=== PATIENT | female | born 1995 | race Caucasian/White ===

== ENCOUNTER 2017-05-07 08:50 | Emergency (ER) | payer BC ==
[2017-05-07 09:01] LABS: Glucose,Whole Blood 89 mg/dL (75-99)
[2017-05-07] MEDS ORDERED: SODIUM CHLORIDE 0.9% 1,000 ML IV STA (09:11)
--- NOTE | 2017-05-07 09:18 | ED ---
General Adult HPI - General Chief complaint: Syncope Stated complaint: Passed out and hit head Time Seen by Provider: 05/07/17 08:59 Source: patient, RN notes reviewed Mode of arrival: ambulatory Limitations: no limitations - History of Present Illness Initial comments: 21-year-old male presents emergency department with a chief complaint of syncopal episode. Patient states SHE IS NOT FEELING WELL SHE STOOD UP AND SHE GOT LIGHTHEADED AND PASSED OUT. PATIENT STATES IS HER HEAD. SHE STATES SHE HAS MILD HEADACHE DENIES ANY NECK PAIN AND DENIES ANY NAUSEA VOMITING. PATIENT STATES SHE IS FEELING BETTER AT THIS TIME. PATIENT STATES SHE DRANK A LOT OF WATER YESTERDAY BUT SHE DID NOT EAT VERY MUCH. PATIENT STATES THAT SHE HASN'T HAD ANY CHANGES IN LUMBAR BLADDER HABITS. PATIENT DENIES ANY FEVER OR CHILLS. THEY DENY ANY SIGNIFICANT HEALTH HISTORY AND CHILD. SHE DENIES ANY DRUG OR ALCOHOL USE. THERE WERE CONCERNED DUE TO THE SYNCOPAL EPISODES WITHOUT THAT THEY SHOULD BE EVALUATED.Patient denies any recent fever, chills, shortness of breath, chest pain, back pain, abdominal pain, nausea vomiting, numbness or tingling, dysuria or hematuria, constipation or diarrhea, visual changes, or any other current symptoms. - Related Data Home Medications Medication Instructions Recorded Confirmed No Known Home Medications [No 05/07/17 05/07/17 Known Home Medications] Allergies Allergy/AdvReac Type Severity Reaction Status Date / Time No Known Allergies Allergy Verified 05/07/17 09:36 Review of Systems ROS Statement: Those systems with pertinent positive or pertinent negative responses have been documented in the HPI. ROS Other: All systems not noted in ROS Statement are negative. Past Medical History Past Medical History: No Reported History History of Any Multi-Drug Resistant Organisms: None Reported Past Surgical History: No Surgical Hx Reported Past Psychological History: No Psychological Hx Reported Smoking Status: Never smoker Past Alcohol Use History: Occasional Past Drug Use History: None Reported General Exam - General Exam Comments Initial Comments: General: The patient is awake and alert, in no distress, and does not appear acutely ill. Eye: Pupils are equal, round and reactive to light, extra-ocular movements are intact; there is normal conjunctiva bilaterally. No signs of icterus. Ears, nose, mouth and throat: There are moist mucous membranes and no oral lesions. Neck: The neck is supple, there is no tenderness. Cardiovascular: There is a regular rate and rhythm. No murmur, rub or gallop is appreciated. Respiratory: Lungs are clear to auscultation, respirations are non-labored, breath sounds are equal. No wheezes, stridor, rales, or rhonchi. Gastrointestinal: Soft, non-distended, non-tender abdomen without masses or organomegaly noted. There is no rebound or guarding present. No CVA tenderness. Bowel sounds are unremarkable. Back: There is no tenderness to palpation in the midline. There is no obvious deformity. No rashes noted. Musculoskeletal: Normal ROM, no tenderness, There is no pedal edema. There is no calf tenderness or swelling. Sensation intact. Pulses equal bilaterally 2+. Neurological: CN II-XII intact, There are no obvious motor or sensory deficits. Coordination appears grossly intact. Speech is normal. Skin: Skin is warm and dry and no rashes or lesions are noted. Psychiatric: Cooperative, appropriate mood & affect, normal judgment. Limitations: no limitations Course Vital Signs 05/07/17 08:50 Temperature 97.6 F Pulse Rate 77 Respiratory 18 Rate Blood Pressure 148/94 O2 Sat by Pulse 100 Oximetry Medical Decision Making - Medical Decision Making 21-year-old female presents emergency Department with a chief complaint of syncopal episode. At this time patient's laboratory is reviewed. Does appear to be some dehydration. With further questioning it does appear that patient was at a green party on Saturday night and does not eat much yesterday she states she did have somewhat to drink. This and we discussed her symptoms could be from the dehydration. We also dressed the amphetamine in the urine drug screen and she states that she was at a green party she is not sleeping last night but she hasn' t used these in the past. At this time we did discuss. With her doctor. We did discuss return parameters all the questions. She stated that she understood and she is given the plan. She will be discharged home. - Lab Data Result diagrams: 05/07/17 09:24 05/07/17 09:24 Lab Results 05/07/17 05/07/17 05/07/17 Range/Units 09:00 09:19 09:19 WBC (4.0-11.0) k/uL RBC (3.80-5.40) m/uL Hgb (11.4-16.0) gm/dL Hct (34.0-46.0) % MCV (80.0-100.0) fL MCH (25.0-35.0) pg MCHC (31.0-37.0) g/dL RDW (11.5-15.5) % Plt Count (150-450) k/uL Neutrophils % % Lymphocytes % % Monocytes % % Eosinophils % % Basophils % % Neutrophils # (1.3-7.7) k/uL Lymphocytes # (1.0-4.8) k/uL Monocytes # (0-1.0) k/uL Eosinophils # (0-0.7) k/uL Basophils # (0-0.2) k/uL Sodium (137-145) mmol/L Potassium (3.5-5.1) mmol/L Chloride (98-107) mmol/L Carbon Dioxide (22-30) mmol/L Anion Gap mmol/L BUN (7-17) mg/dL Creatinine (0.52-1.04) mg/dL Est GFR (MDRD) Af Amer (>60 ml/min/1.73 sqM) Est GFR (MDRD) Non-Af (>60 ml/min/1.73 sqM) Glucose (74-99) mg/dL POC Glucose (mg/dL) 89 (75-99) mg/dL POC Glu Hydrographer ID Grace Hubbard Calcium (8.4-10.2) mg/dL Total Bilirubin (0.2-1.3) mg/dL AST (14-36) U/L ALT (9-52) U/L Alkaline Phosphatase (38-126) U/L Total Protein (6.3-8.2) g/dL Albumin (3.5-5.0) g/dL Amylase (30-110) U/L Lipase (23-300) U/L Urine Color Yellow Urine Appearance Clear (Clear) Urine pH 6.0 (5.0-8.0) Ur Specific [place] 1.015 (1.001-1.035) Urine Protein Negative (Negative) Urine Glucose (UA) Negative (Negative) Urine Ketones Negative (Negative) Urine Blood Negative (Negative) Urine Nitrite Negative (Negative) Urine Bilirubin Negative (Negative) Urine Urobilinogen <2.0 (<2.0) mg/dL Ur Leukocyte Esterase Negative (Negative) Urine HCG, Qual Not Detected (Not Detectd) Urine Opiates Screen Not Detected (NotDetected) Ur Oxycodone Screen Not Detected (NotDetected) Urine Methadone Screen Not Detected (NotDetected) Ur Propoxyphene Screen Not Detected (NotDetected) Ur Barbiturates Screen Not Detected (NotDetected) U Tricyclic Antidepress Not Detected (NotDetected) Ur Phencyclidine Scrn Not Detected (NotDetected) Ur Amphetamines Screen Detected H (NotDetected) U Methamphetamines Scrn Not Detected (NotDetected) U Benzodiazepines Scrn Not Detected (NotDetected) Urine Cocaine Screen Not Detected (NotDetected) U Marijuana (THC) Screen Not Detected (NotDetected) 05/07/17 05/07/17 Range/Units 09:24 09:24 WBC 7.1 (4.0-11.0) k/uL RBC 5.10 (3.80-5.40) m/uL Hgb 16.2 H (11.4-16.0) gm/dL Hct 47.0 H (34.0-46.0) % MCV 92.3 (80.0-100.0) fL MCH 31.7 (25.0-35.0) pg MCHC 34.4 (31.0-37.0) g/dL RDW 13.2 (11.5-15.5) % Plt Count 356 (150-450) k/uL Neutrophils % 46 % Lymphocytes % 44 % Monocytes % 5 % Eosinophils % 2 % Basophils % 1 % Neutrophils # 3.2 (1.3-7.7) k/uL Lymphocytes # 3.1 (1.0-4.8) k/uL Monocytes # 0.4 (0-1.0) k/uL Eosinophils # 0.1 (0-0.7) k/uL Basophils # 0.1 (0-0.2) k/uL Sodium 141 (137-145) mmol/L Potassium 3.7 (3.5-5.1) mmol/L Chloride 104 (98-107) mmol/L Carbon Dioxide 27 (22-30) mmol/L Anion Gap 10 mmol/L BUN 13 (7-17) mg/dL Creatinine 0.84 (0.52-1.04) mg/dL Est GFR (MDRD) Af Amer >60 (>60 ml/min/1.73 sqM) Est GFR (MDRD) Non-Af >60 (>60 ml/min/1.73 sqM) Glucose 87 (74-99) mg/dL POC Glucose (mg/dL) (75-99) mg/dL POC Glu Hydrographer ID Calcium 9.6 (8.4-10.2) mg/dL Total Bilirubin 0.9 (0.2-1.3) mg/dL AST 17 (14-36) U/L ALT 22 (9-52) U/L Alkaline Phosphatase 83 (38-126) U/L Total Protein 7.5 (6.3-8.2) g/dL Albumin 4.2 (3.5-5.0) g/dL Amylase 53 (30-110) U/L Lipase 124 (23-300) U/L Urine Color Urine Appearance (Clear) Urine pH (5.0-8.0) Ur Specific [place] (1.001-1.035) Urine Protein (Negative) Urine Glucose (UA) (Negative) Urine Ketones (Negative) Urine Blood (Negative) Urine Nitrite (Negative) Urine Bilirubin (Negative) Urine Urobilinogen (<2.0) mg/dL Ur Leukocyte Esterase (Negative) Urine HCG, Qual (Not Detectd) Urine Opiates Screen (NotDetected) Ur Oxycodone Screen (NotDetected) Urine Methadone Screen (NotDetected) Ur Propoxyphene Screen (NotDetected) Ur Barbiturates Screen (NotDetected) U Tricyclic Antidepress (NotDetected) Ur Phencyclidine Scrn (NotDetected) Ur Amphetamines Screen (NotDetected) U Methamphetamines Scrn (NotDetected) U Benzodiazepines Scrn (NotDetected) Urine Cocaine Screen (NotDetected) U Marijuana (THC) Screen (NotDetected) - Radiology Data Radiology results: report reviewed, image reviewed Disposition Clinical Impression: Dehydration, Episode of syncope Disposition: HOME SELF-CARE Condition: Stable Instructions: Syncope (ED), Dehydration (ED) Additional Instructions: Please use medication as discussed. Please follow up with family doctor if symptoms have not improved over the next two days. Please return to the emergency room if your symptoms increase or worsen or for any other concerns. Referrals: Katt Mayen MD [STAFF PHYSICIAN] - 1-2 days Time of Disposition: 10:13
[2017-05-07 09:33] LABS: Basophils # (A) 0.1 k/uL (0-0.2); Basophils % (A) 1 %; CH 31.5; CHCM 34.3; Eosinophils # (A) 0.1 k/uL (0-0.7); Eosinophils % (A) 2 %; HDW 2.71; HGB 16.2 gm/dL (11.4-16.0); Luc # (Auto) 0.23; Luc % (Auto) 3; Lymphocytes # (A) 3.1 k/uL (1.0-4.8); Lymphocytes % (A) 44 %; MCH 31.7 pg (25.0-35.0); MCHC 34.4 g/dL (31.0-37.0); MCV 92.3 fL (80.0-100.0); Mean Platelet Volume 6.6; Monocytes # (A) 0.4 k/uL (0-1.0); Monocytes % (A) 5 %; Neutrophils # (A) 3.2 k/uL (1.3-7.7); Neutrophils % (A) 46 %; RDW 13.2 % (11.5-15.5); WBC 7.1 k/uL (4.0-11.0); WBC (Perox) 7.18
[2017-05-07 09:36] LABS: Appearance,Urine Clear (Clear); Bilirubin,Urine Negative (Negative); Glucose,Urine (UA) Negative (Negative); Ketones,Urine Negative (Negative); Leukocyte Esterase,Urine Negative (Negative); Nitrite,Urine Negative (Negative); Protein,Urine Negative (Negative); Specific Gravity,Urine 1.015 (1.001-1.035); UA Billing (MACRO vs. MICRO) CHEM; Urobilinogen,Urine <2.0 mg/dL (<2.0)
[2017-05-07 09:42] LABS: ALT 22 U/L (9-52); AST 17 U/L (14-36); Alkaline Phosphatase 83 U/L (38-126); Amylase 53 U/L (30-110); Anion Gap 10 mmol/L; Blood Urea Nitrogen 13 mg/dL (7-17); Calcium 9.6 mg/dL (8.4-10.2); Carbon Dioxide 27 mmol/L (22-30); Chloride 104 mmol/L (98-107); Glucose 87 mg/dL (74-99); Non-African American GFR(MDRD) >60 (>60 ml/min/1.73 sqM); Potassium 3.7 mmol/L (3.5-5.1); Sodium 141 mmol/L (137-145); Total Bilirubin 0.9 mg/dL (0.2-1.3); Total Protein 7.5 g/dL (6.3-8.2)
--- NOTE | 2017-05-07 10:06 | XR ---
EXAMINATION TYPE: XR chest 2V DATE OF EXAM: 05/07/2017 COMPARISON: NONE TECHNIQUE: PA and lateral views submitted. HISTORY: Cough FINDINGS: The lungs are clear and there is no pneumothorax, pleural effusion, or focal pneumonia. IMPRESSION: 1. No acute process.
[2017-05-07 10:26] VITALS: BP 127/84; PULSE 74; RESP 16; TEMP 98
== END 2017-05-07 10:26 | disposition home or self-care (01) ==
LOC: EC 08:50
DX: R55 Syncope and collapse (principal); E86.0 Dehydration
CPT/HCPCS: 36415; 71020; 80053; 80306; 81003; 81025; 82150; 83690; 85025; 93005; 96360; 99284

== ENCOUNTER 2022-06-21 06:05 | Inpatient (IN) | payer BC, OTHER ==
[2022-06-21] MEDS ORDERED: LIDOCAINE 0.5% (PF) 5 MG/ML (50 ML SDV) SQ PRN (06:19)
[2022-06-21] MEDS ORDERED: CARBOPROST TROMETHAMINE 250 MCG/ML 1 ML AMP IM PRN (06:19)
[2022-06-21] MEDS ORDERED: OXYTOCIN 10 UNIT/ML 1 ML VIAL IM PRN (06:19)
[2022-06-21] MEDS ORDERED: TERBUTALINE 1 MG/ML VIAL SQ PRN (06:19)
[2022-06-21] MEDS ORDERED: METHYLERGONOVINE 0.2 MG/ML 1 ML AMP IM PRN (06:19)
[2022-06-21 06:26] VITALS: RESP 16
[2022-06-21] MEDS: LACTATED RINGERS 1,000 ML IV SCH ×2 (06:27→11:45)
[2022-06-21] MEDS ORDERED: OXYTOCIN 30 UNITS/500 ML NS 30 UNIT in SALINE 1 500ML.BAG IV SCH (06:30)
[2022-06-21 06:56] LABS: Basophils % (A) 0 %; Eosinophils % (A) 0 %; HCT 38.7 % (34.0-46.0); HGB 13.3 gm/dL (11.4-16.0); Lymphocytes # (A) 2.1 k/uL (1.0-4.8); Lymphocytes % (A) 25 %; MCH 30.4 pg (25.0-35.0); MCHC 34.3 g/dL (31.0-37.0); MCV 88.8 fL (80.0-100.0); Mean Platelet Volume 9.9; Monocytes # (A) 0.3 k/uL (0-1.0); Monocytes % (A) 4 %; Neutrophils # (A) 5.8 k/uL (1.3-7.7); Neutrophils % (A) 69 %; Platelet Count 198 k/uL (150-450); RBC 4.36 m/uL (3.80-5.40); RDW 14.1 % (11.5-15.5); WBC 8.5 k/uL (3.8-10.6)
--- NOTE | 2022-06-21 09:00 | P.HPOB ---
History of Present Illness H&P Date: 06/21/22 Chief Complaint: induction of labor 27 year old presents at 38 weeks 6 days for induction of labor due to IUGR. Her cervix is 2/70/-2 and she is na irregularly. heart tones are 140 with moderate variability and reactive. Review of Systems All systems: negative Constitutional: Denies chills, Denies fever Eyes: denies blurred vision, denies pain Ears, nose, mouth and throat: Denies headache, Denies sore throat Cardiovascular: Denies chest pain, Denies shortness of breath Respiratory: Denies cough Gastrointestinal: Denies abdominal pain, Denies diarrhea, Denies nausea, Denies vomiting Genitourinary: Denies dysuria, Denies hematuria Musculoskeletal: Denies myalgias Integumentary: Denies pruritus, Denies rash Neurological: Denies numbness, Denies weakness Psychiatric: Denies anxiety, Denies depression Endocrine: Denies fatigue, Denies weight change Past Medical History Past Medical History: No Reported History History of Any Multi-Drug Resistant Organisms: None Reported Past Surgical History: No Surgical Hx Reported Past Anesthesia/Blood Transfusion Reactions: No Reported Reaction Past Psychological History: No Psychological Hx Reported Smoking Status: Never smoker Past Drug Use History: None Reported Medications and Allergies Home Medications Medication Instructions Recorded Confirmed Type Vit No.179/Iron/Folic 1 tab PO DAILY 06/21/22 06/21/22 History [ Tablet] Allergies Allergy/AdvReac Type Severity Reaction Status Date / Time No Known Allergies Allergy Verified 06/21/22 06:18 Exam Osteopathic Statement: *. No significant issues noted on an osteopathic structural exam other than those noted in the History and Physical/Consult. Vital Signs Temp Pulse Resp BP Pulse Ox 06/21/22 06:16 96.5 F L 100 16 144/86 100 Intake and Output 06/20/22 06/21/22 06/21/22 22:59 06:59 14:59 Other: Weight 77.111 kg Heart: Regular rate and rhythm Lungs: Clear to auscultation bilaterally Abdomen: Soft, nontender Extremities: Negative Homans sign Results Result Diagrams: 06/21/22 06:15 Assessment and Plan (1) IUGR (intrauterine growth restriction) Current Visit: Yes Status: Acute Code(s): PIM2212 - SNOMED Code(s): 80494717 (2) Encounter for induction of labor Current Visit: Yes Status: Acute Code(s): Z34.90 - ENCNTR FOR SUPRVSN OF NORMAL , UNSP, UNSP TRIMESTER SNOMED Code(s): 400471159
[2022-06-21] MEDS ORDERED: SODIUM CHLORIDE 0.9% 100 ML BAG ONE (12:05)
[2022-06-21] MEDS ORDERED: ROPIVACAINE 5 MG/ML 20 ML AMPULE ONE (12:05)
[2022-06-21] MEDS ORDERED: fentaNYL (PF) 50 MCG/ML 5 ML AMP ONE (12:05)
[2022-06-22] MEDS ORDERED: SIMETHICONE 80 MG CHEWABLE PO PRN (05:23)
[2022-06-22] MEDS ORDERED: NALOXONE 0.4 MG/ML 1 ML VIAL IV PRN (05:26)
[2022-06-22] MEDS ORDERED: METOCLOPRAMIDE 5 MG/ML 2 ML VIAL IVP PRN (05:26)
[2022-06-22] MEDS ORDERED: diphenhydrAMINE 50 MG/ML 1 ML VIAL IVP PRN ×2 (05:26)
[2022-06-22] MEDS ORDERED: diphenhydrAMINE 50 MG CAP PO PRN (05:26)
[2022-06-22] MEDS ORDERED: ONDANSETRON 4 MG/2 ML VIAL IVP PRN (05:26)
[2022-06-22] MEDS: LACTATED RINGERS 1,000 ML IV SCH (07:20)
--- NOTE | 2022-06-22 08:56 | P.OP ---
Date of Procedure: 06/22/22 (This is a late entry due to computer downtime at the hospital.) Preoperative Diagnosis: 1. at 39 weeks 2. IUGR 3. failure to progress 4. category 2 heart tones. Postoperative Diagnosis: same Procedure(s) Performed: Primary low transverse Anesthesia: epidural Surgeon: Sapphire Hair Freelance Digital Project Manager #1: Valeri Jiménez Estimated Blood Loss (ml): 500 IV fluids (ml): 800 Urine output (ml): 200 Pathology: none sent Condition: stable Disposition: floor Indications for Procedure: 27-year-old presented at 38 weeks and 6 days for induction of labor due to intrauterine growth restriction. When she presented she was 1-2 cm dilated and amniotomy was performed clear fluid noted. Pitocin augmentation was also started. She progressed slowly throughout the day and was 1 was uncomfortable she did get an epidural. She was 6 cm for 12 hours and then heart tones started to have minimal variability and decelerations with the contractions. Category II FHT managed following algorithm including initiation of corrective measure oxygen and turning the Pitocin off. With the persistent presence of minimal variability and decelerations, a patient-centered huddle was held and the need for an expedited deliver was discussed with the patient. It is our clinical recommendation to proceed with the delivery and after questions were answered to the patient agrees to proceed with the recommended plan. Operative Findings: Viable infant, Apgars 9, 9, weight 5 lbs. 10 oz. Description of Procedure: Patient was taken to the operating room where spinal anesthesia was found be adequate. She was prepped and draped in normal sterile fashion in dorsal supine position with a leftward tilt. Pfannenstiel skin incision was made the scalpel and carried through to the underlying layer of fascia with the scalpel. Fascia was incised in midline and carried bilaterally with the Mota scissors. The superior aspect of the fascial incision was grasped with Graciela clamps elevated and the underlying rectus muscles dissected off with the Mota's. Attention was then turned to inferior aspect of same incision which in a similar fashion was grasped tented up and the underlying rectus muscles dissected off with the Mota's. The rectus muscles were the midline and the peritoneum was identified tented up and entered sharply with the scalpel. The incision was extended superiorly and inferiorly with good visualization of the bladder. The bladder blade was inserted and the vesicouterine peritoneum was incised the Metzenbaums then carried bilaterally and bladder flap created digitally. A low transverse incision was then made on the uterus with the scalpel. This was carried bilaterally and digital manner. 's head delivered atraumatically, nose and mouth bulb suctioned, cord clamped and cut, handed off to waiting nurses. Apgars 9,9, weight 5 lbs. 10 oz. Placenta delivered manually, intact with three-vessel cord. The uterus is exteriorized and cleared of all clots and debris. The uterine incision was closed with 0 Vicryl in a running locked fashion. Second layer of the same sutures used in imbricating fashion to obtain excellent hemostasis. Bladder flap was then reapproximated using 2-0 Vicryl in a running fashion. Both ovaries and tubes appeared normal. The uterus was placed back into the abdomen. The peritoneum was reapproximated using 2-0 Vicryl in a running fashion. The muscles were reapproximated using 2- 0 Vicryl in interrupted fashion. The fascia was reapproximated using 0 Vicryl in a running fashion. The subcutaneous tissues closed with 3-0 Vicryl running fashion. The skin was closed tyrese. Patient tolerated the procedure well, sponge and instrument counts were correct times 2 and she was taken to the recovery room in stable condition.
[2022-06-22] MEDS: KETOROLAC 15 MG/ML 1 ML VIAL IVP SCH ×2 (09:20→15:49)
[2022-06-22] MEDS: SENNOSIDES-DOCUSATE SODIUM 1 EACH TAB PO SCH (09:22)
--- NOTE | 2022-06-22 09:32 | P.PN ---
Progress Note - Text 06/22/22 647m 37-year-old female status post with an epidural catheter. Patient was dosed with Duramorph after the procedure. Patient seen and evaluated for postop pain control, patient has a VAS of 2 with no complains of nausea vomiting or pruritus.
[2022-06-22] MEDS: ACETAMINOPHEN TAB 500 MG TAB PO SCH ×2 (10:22→20:52)
[2022-06-23] MEDS: KETOROLAC 15 MG/ML 1 ML VIAL IVP SCH ×6 (00:04→06:33)
[2022-06-23] MEDS: IBUPROFEN 600 MG TAB PO SCH ×11 (00:05→20:15)
[2022-06-23] MEDS: ACETAMINOPHEN TAB 325 MG TAB PO SCH ×7 (00:05→22:56)
[2022-06-23] MEDS: LACTATED RINGERS 1,000 ML IV SCH ×4 (00:05→06:33)
[2022-06-23] MEDS: SENNOSIDES-DOCUSATE SODIUM 1 EACH TAB PO SCH ×2 (00:06→08:48)
[2022-06-23] MEDS: ACETAMINOPHEN TAB 500 MG TAB PO SCH ×2 (00:08→04:54)
[2022-06-23 08:16] LABS: Basophils % (A) 0 %; Eosinophils # (A) 0.1 k/uL (0-0.7); Eosinophils % (A) 0 %; HCT 32.9 % (34.0-46.0); HGB 11.4 gm/dL (11.4-16.0); Lymphocytes % (A) 8 %; MCH 31.1 pg (25.0-35.0); MCHC 34.7 g/dL (31.0-37.0); MCV 89.6 fL (80.0-100.0); Mean Platelet Volume 10.7; Monocytes # (A) 0.4 k/uL (0-1.0); Monocytes % (A) 4 %; Neutrophils # (A) 10.5 k/uL (1.3-7.7); Neutrophils % (A) 87 %; Platelet Count 167 k/uL (150-450); RBC 3.68 m/uL (3.80-5.40); RDW 13.7 % (11.5-15.5); WBC 12.1 k/uL (3.8-10.6)
--- NOTE | 2022-06-23 08:46 | P.PNOBGPC ---
Subjective - Subjective Patient reports: Reports appetite normal, Reports voiding normally, Reports pain well controlled, Reports ambulating normally Banks: doing well Objective - Vital Signs Latest vital signs: Vital Signs Temp Pulse Resp BP Pulse Ox 06/23/22 08:00 98.6 F 67 16 121/79 06/23/22 04:45 99.2 F 06/23/22 00:00 98.3 F 96 16 129/74 96 06/22/22 20:00 100.9 F H 118 H 16 137/64 99 06/22/22 16:00 97.6 F 88 16 129/76 97 06/22/22 12:00 97.6 F 99 16 117/74 98 Intake and Output 06/22/22 06/23/22 06/23/22 22:59 06:59 14:59 Output Total 500 Balance -500 Output: Urine 500 Other: # Voids 1 1 1 - Exam Lungs: bilateral: normal Chest: Normal S1, Normal S2 Extremities: Present: normal Abdomen: Present: normal appearance, soft. Absent: distention, tenderness Incision: Present: normal, erythematous, dry, intact Uterus: Present: normal, firm - Labs Labs: Abnormal Lab Results - Last 24 Hours (Table) 06/23/22 Range/Units 07:54 WBC 12.1 H (3.8-10.6) k/uL RBC 3.68 L (3.80-5.40) m/uL Hct 32.9 L (34.0-46.0) % Neutrophils # 10.5 H (1.3-7.7) k/uL Assessment and Plan Assessment: Postoperative day #2. Patient is feeling well. She did notice a red rash on her upper abdomen and on the inner thighs. Examination shows her incision to be intact and dry. Is an erythematous rash above the incision and then both upper inner thighs. This appears to be ALLERGIC in nature. Vital signs show that she's had a T-max of 100.8 last evening. CBC is normal for the most part today. Due to the elevated temperature and recent surgery on prophylactic prophylactically give her 2 doses of Ancef. We'll repeat a CBC in the morning. She'll use Benadryl for her rash. (1) delivery delivered Current Visit: Yes Status: Acute Code(s): O82 - ENCOUNTER FOR DELIVERY WITHOUT INDICATION SNOMED Code(s): 674852995
[2022-06-23] MEDS: diphenhydrAMINE 25 MG CAP PO PRN ×2 (08:53→16:07)
[2022-06-24] MEDS: diphenhydrAMINE 25 MG CAP PO PRN (02:06)
[2022-06-24] MEDS: SENNOSIDES-DOCUSATE SODIUM 1 EACH TAB PO SCH ×2 (02:38→08:41)
[2022-06-24] MEDS: KETOROLAC 15 MG/ML 1 ML VIAL IVP SCH ×4 (02:39→07:09)
[2022-06-24] MEDS: ACETAMINOPHEN TAB 325 MG TAB PO SCH ×3 (02:41→10:44)
[2022-06-24] MEDS: IBUPROFEN 600 MG TAB PO SCH ×3 (02:42→08:41)
[2022-06-24] MEDS: ACETAMINOPHEN TAB 500 MG TAB PO SCH (05:11)
[2022-06-24 07:24] LABS: Basophils % (A) 0 %; Eosinophils # (A) 0.2 k/uL (0-0.7); Eosinophils % (A) 2 %; HCT 34.4 % (34.0-46.0); HGB 11.7 gm/dL (11.4-16.0); Hypochromasia Slight; Lymphocytes # (A) 1.6 k/uL (1.0-4.8); Lymphocytes % (A) 18 %; MCV 91.2 fL (80.0-100.0); Mean Platelet Volume 9.6; Monocytes # (A) 0.4 k/uL (0-1.0); Monocytes % (A) 4 %; Neutrophils # (A) 6.2 k/uL (1.3-7.7); Neutrophils % (A) 74 %; Platelet Count 183 k/uL (150-450); RBC 3.77 m/uL (3.80-5.40); RDW 13.7 % (11.5-15.5); WBC 8.4 k/uL (3.8-10.6)
[2022-06-24] MEDS ORDERED: HYDROCORTISONE 1% CREAM 30 GM TUBE TOPICAL PRN (07:40)
--- NOTE | 2022-06-24 07:50 | P.PNOBGPC ---
Subjective - Subjective Patient reports: Reports appetite normal, Reports voiding normally, Reports pain well controlled, Reports ambulating normally : doing well Objective - Vital Signs Latest vital signs: Vital Signs Temp Pulse Resp BP Pulse Ox 06/24/22 00:00 98.6 F 98 16 129/68 99 06/23/22 15:56 98.1 F 98 16 108/66 06/23/22 12:00 99.8 F H 112 H 16 123/70 06/23/22 08:00 98.6 F 67 16 121/79 - Exam Lungs: bilateral: normal Chest: Normal S1, Normal S2 Extremities: Present: normal Abdomen: Present: normal appearance, soft. Absent: distention, tenderness Incision: Present: normal, dry, intact Uterus: Present: normal, firm - Labs Labs: Abnormal Lab Results - Last 24 Hours (Table) 06/23/22 06/24/22 Range/Units 07:54 06:59 WBC 12.1 H (3.8-10.6) k/uL RBC 3.68 L 3.77 L (3.80-5.40) m/uL Hct 32.9 L (34.0-46.0) % Neutrophils # 10.5 H (1.3-7.7) k/uL Assessment and Plan Assessment: Postoperative day #2. Patient is resting without new complaints and wishes to go home. Vital signs have been afebrile for over 24 hours. Uterus is firm nontender and her incision is intact and dry. She does have a continued erythematous rash of her lower abdomen and inner thighs consistent with some type of ALLERGIC reaction. There is no evidence of cellulitis. This appears to be related to either linen or some type of product that she used here at the hospital. Patient is ambulating, urinating, tolerating regular diet. Plan today is to discharge home later this morning. I did advise a topical steroid cream and she is follow-up with Dr. Hair in 1 week for an incision check and she'll recheck the rash at that time as well. (1) delivery delivered Current Visit: Yes Status: Acute Code(s): O82 - ENCOUNTER FOR DELIVERY WITHOUT INDICATION SNOMED Code(s): 197257308 (2) Allergic dermatitis Current Visit: Yes Status: Acute Code(s): L23.9 - ALLERGIC CONTACT DERMATIT IS, UNSPECIFIED CAUSE SNOMED Code(s): 530168042
--- NOTE | 2022-06-24 07:59 | P.DS ---
Providers Date of admission: 06/21/22 06:05 Expected date of discharge: 06/24/22 Attending physician: Sapphire Hair Primary care physician: Stated None - Discharge Diagnosis(es) (1) delivery delivered Current Visit: Yes Status: Acute (2) Allergic dermatitis Current Visit: Yes Status: Acute Hospital Course: Please see dictated history and physical and operative note per Dr. Hair this patient's admission. In brief summary this is a pleasant 27-year-old 1 para 0 female 39-0/7 weeks gestation admitted to labor and delivery for induction of labor. Patient subsequently went on to have a primary section for viable male . Please see dictated operative note. Postoperatively the patient did develop a low-grade temperature which time she was placed on some IV antibiotics and defervesced quickly. Patient also developed an ALLERGIC skin reaction to her abdomen and upper thighs. This was thought to be secondary to some type of contact dermatitis. Postoperative and 2 patient was felt be stable for discharge home follow up with Dr. Hair and 1 week. Procedures: Induction of labor and primary low transverse section Patient Condition at Discharge: Good Plan - Discharge Summary Discharge Rx Participant: No New Discharge Prescriptions: New Ibuprofen [Motrin] 600 mg PO Q6H #40 tab oxyCODONE HCL [OxyIR] 5 mg PO Q4HR PRN #18 tab PRN Reason: Pain Scale 4 - 6 No Action Vit No.179/Iron/Folic [ Tablet] 1 tab PO DAILY Discharge Medication List Vit No.179/Iron/Folic [ Tablet] 1 tab PO DAILY 06/21/22 [History] Ibuprofen [Motrin] 600 mg PO Q6H #40 tab 06/24/22 [Rx] oxyCODONE HCL [OxyIR] 5 mg PO Q4HR PRN #18 tab 06/24/22 [Rx] Follow up Appointment(s)/Referral(s): Sapphire Hair DO [Doctor of Osteopathic Medicine] - 08/08/22 11:15 am (Please see Dr. Hair at the end of next week for an incision check and recheck of the rash.) Patient Instructions/Handouts: (DC), Contact Dermatitis (DC) Activity/Diet/Wound Care/Special Instructions: No heavy lifting or strenuous activity for 6 weeks. No intercourse or anything per vagina for 6 weeks. Please call if any fever, chills, excessive vaginal bleeding, and/or abdominal pain. Discharge Disposition: HOME SELF-CARE
[2022-06-24 08:35] VITALS: BP 126/80; PULSE 102; TEMP 98.4
== END 2022-06-24 11:50 | disposition home or self-care (01) | DRG 787 ==
LOC: 4FBP 06:05
PROVIDERS: ADMIT Obstetrics & Gynecology; ATTEND Obstetrics & Gynecology
PROC: 10907ZC Drainage of Amniotic Fluid, Therapeutic from Products of Conception, Via Natural or Artificial Opening (ICD-10-PCS; 2022-06-21)
PROC: 10D00Z1 Extraction of Products of Conception, Low, Open Approach (ICD-10-PCS; principal; 2022-06-22 00:40)
DX: O36.5930 Maternal care for other known or suspected poor fetal growth, third trimester, not applicable or unspecified (principal); O86.4 Pyrexia of unknown origin following delivery; O62.0 Primary inadequate contractions; O76 Abnormality in fetal heart rate and rhythm complicating labor and delivery; O99.73 Diseases of the skin and subcutaneous tissue complicating the puerperium; L23.89 Allergic contact dermatitis due to other agents; Z3A.38 38 weeks gestation of pregnancy; Z37.0 Single live birth
CPT/HCPCS: 85025; 86850; 86900; 86901